=== PATIENT | male | born 1955 | race Caucasian/White ===

== ENCOUNTER 2020-12-13 10:57 | Observation (INO) ==
[2020-12-13] MEDS ORDERED: ONDANSETRON HCL/PF 2 MG/ML VIAL IV ONE ×2 (11:10→12:18)
[2020-12-13] MEDS ORDERED: NORMAL SALINE 1,000 ML IV PRN (11:11)
[2020-12-13] MEDS ORDERED: MORPHINE SULFATE 2 MG/ML DISP.SYRIN IV ONE ×2 (11:11→23:05)
--- NOTE | 2020-12-13 11:27 | ERNOTE ---
Abdominal HPI - Narrative Date of Service: 12/13/20 - General Chief Complaint: Abdominal Pain Time Seen by Provider: 12/13/20 11:07 Source: patient Exam Limitations: clinical condition - Immun/Allergies/Home Medications Immunizatons: IMMUNIZATION HX Immunizations Up to Date No History of Influenza Vaccine No Allergies/Adverse Reactions: Allergies No Known Allergies Allergy (Verified 07/10/20 13:35) - Pain Score Pain Score #1 Pain Score: 9 Abdominal Pain Onset Location: generalized abdomen Pain Radiation: no radiation - History of Present Illness Narrative: The patient is a 65 year old male who presents via POV for abdominal pain which has been present since this am. There are associated symptoms of nausea and vomiting. The patient reports generalized abdominal pain, 9/10. There are no alleviating factors. There are aggravating factors of oral intake. Previous treatments have included: none. The past medical history includes: noncontributory. The social history is positive for daily alcohol use and occasional marijuana use. The patient has had no known ill contacts. Patient reports intake of beer and vodka last evening and then this am awoke due to abdominal pain with onset of vomiting. 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 Patient states he chronically has blood streaks to stool due to hemorrhoids and today was unchanged. Review of Systems - Review of Systems Constitutional: Present: chills, diaphoresis. Absent: fever EYE: Present: no symptoms reported ENT: Present: no symptoms reported. Absent: ear pain, nasal drainage, sore throat Respiratory: Present: shortness of breath, cough Cardiology: Absent: chest pain Gastrointestinal/Abdominal: Present: nausea, vomiting, diarrhea, abdominal pain Genitourinary: Present: decreased urinary output. Absent: dysuria Skin: Present: no symptoms reported. Absent: rash Neurological: Present: no symptoms reported Medical History (Last Reviewed 12/13/20 @ 11:13 by JEANETTE Whaley) Personal history of other (healed) physical injury and trauma (Chronic) Chronic back pain (Chronic) Pneumothorax (Resolved) Onset Date: ~1985 History of MRSA infection (Acute) Onset Date: 02/19/15 Pathologic fracture (Inactive) Onset Date: Unknown Cellulitis (Resolved) Onset Date: 02/19/15 Pain from implanted hardware (Acute) Onset Date: Unknown Tendinopathy (Acute) Onset Date: Unknown Radial nerve entrapment (Acute) Onset Date: Unknown Surgical History: Surgical History (Last Reviewed 12/13/20 @ 11:13 by JEANETTE Whaley) annmarie placement (Acute) Onset Date: ~1984 left S/P hernia repair (Inactive) Onset Date: ~1975 right inguinal History of dental surgery (Acute) Onset Date: Unknown S/P hemorrhoidectomy (Inactive) Onset Date: ~1989 Family History: Family History (Last Reviewed 12/13/20 @ 11:13 by EJANETTE Whaley) Father Lung cancer Mother Stomach cancer Brother Natural with unknown cause Sister Renal disease Social History: (Last Reviewed 12/13/20 @ 11:13 by JEANETTE Whaley) Social History: assisted: No Marital status: lives independently: Yes household members: none number of children: 2 current occupational status: employed Highest level of school completed/degree received: high school graduate Service: Yes branch: [employer] Tobacco: Smoking Status: Never smoker second hand exposure: No Alcohol: alcohol intake: current Substance Use: substance use type: does not use Dietary Habits: caffeine: Yes Exercise: frequency: does not exercise Physical Exam - Physical Exam General Appearance: Present: wd/wn, alert, moderate distress Head Exam: Present: normal inspection, no evidence of injury Eye Exam: Normal inspection: bilateral Neck: Present: normal inspection Respiratory: Present: no respiratory distress, normal breath sounds, no accessory muscle use, wheezing Cardiovascular/Chest: Present: regular rate, rhythm, no murmur Gastrointestinal/Abdominal: Present: normal bowel sounds, nondistended, soft, tenderness - diffuse abdominal pain, guarding, no pulsatile mass, hepatomegaly Extremity Exam: Present: no edema Neurological Exam: Present: alert, oriented, normal mood/affect, no motor/sensory deficits Skin Exam: Present: normal color, warm/dry Progress - Date and Time Seen: Date and Time: 12/13/20 14:28 Results of testing and imaging reviewed with , will admit for observati on. Will administer IV antibiotics to ensure coverage for potential infectious cause as well as add Protonix. Patient remains having intractable nausea, vomiting and abdominal pain that is managed with medication administration IV. Patient informed of plan of care and agrees with plan, verbalized understanding. - Results and Orders Patient's Lab Results:: I have reviewed the patient's lab results. - Vital Signs Patient's Vital Signs:: I have reviewed the patient's vital signs. Vital Signs: Vital Signs 12/13/20 11:00 Temperature 36.2 C Pulse Rate 85 Respiratory Rate 22 H Blood Pressure 160/106 H O2 Sat by Pulse Oximetry 100 - CT/Ultrasound CT/Ultrasound Narrative: IMPRESSION: 1. Colitis. No pneumatosis or portal venous gas. No evidence of bowel obstruction. No free air. No abscess. 2. Small hiatal hernia. 3. Question distal esophagitis. 4. Findings concerning for prostatitis and seminal vesiculitis. Also, question cystitis. 5. Findings at the posterior right lower lung may represent scarring. Consider nonemergent outpatient CT chest to further evaluate for a pulmonary nodule. 6. Additional findings and comments are as above. Electronically signed by [place] D.O.. - Progress/Reassessment Chief Complaint: Abdominal Pain Departure Clinical Impression: Colitis Abdominal pain Qualifiers: Abdominal location: generalized Qualified Code(s): R10.84 - Generalized abdominal pain - Departure Disposition: Still a patient Condition: Fair Referrals: Manjula Javier DO [Primary Care Provider] -
[2020-12-13 11:29] LABS: Hematocrit 46.1 % (42.0-52.0); Hemoglobin 15.5 gm/dL (13.5-18.0); Mean Cell Volume 98.7 fl (78-100); Mean Corpuscular Hemoglobin 33.2 pg (27-31); Mean Corpuscular Hgb Conc 33.6 g/dl (32-36); Mean Platelet Volume 10.8 fl (8-11.3); Neutrophil # 8.2 K/mm3 (1.3-6.0); Neutrophil % 78.9 % (42-75.0); Platelet Count 222 K/mm3 (150-450); Red Blood Count 4.67 M/mm3 (4.7-6.0); Red Cell Distribution Width 13.5 % (11.5-14.0); White Blood Count 10.3 K/mm3 (4.0-10.5)
[2020-12-13 11:35] LABS: Albumin * 4.7 gm/dl (3.4-5.0); Anion Gap 19.2 mmol/L (6.8-13.8); Bilirubin, Total 0.6 mg/dL (0.0-1.1); Ca. Corrected For Albumin 8.9 mg/dL (8.4-10.2); Calcium * 9.8 mg/dL (7.9-10.9); Carbon Dioxide 24.4 mmol/L (24-32.6); Potassium 3.6 mmol/L (3.4-4.6); Total Protein 8.5 gm/dL (6.2-8.2)
[2020-12-13] MEDS ORDERED: DIATRIZOATE MEGLUMINE, SODIUM 30 ML BTL PO ONE (11:49)
[2020-12-13] MEDS ORDERED: NORMAL SALINE 1,000 ML IV ONE (12:20)
[2020-12-13] MEDS ORDERED: METOCLOPRAMIDE HCL 5 MG/ML VIAL IV ONE ×2 (14:08→23:05)
[2020-12-13] MEDS ORDERED: diphenhydrAMINE HCL 50 MG/ML VIAL IV ONE (14:08)
[2020-12-13] MEDS ORDERED: MORPHINE SULFATE 4 MG/ML SYRG IV ONE (14:08)
[2020-12-13 14:10] LABS: Urine Bilirubin Negative (NEGATIVE); Urine Blood Negative /ul (NEGATIVE); Urine Ketone Large mg/dL (NEGATIVE); Urine Nitrite Negative (NEGATIVE); Urine Protein Negative (NEGATIVE); Urine Urobilinogen Normal (NORMAL)
[2020-12-13 14:17] LABS: Urine Appearance Clear (CLEAR); Urine Bacteria None Seen; Urine Color Yellow; Urine RBC None Seen /hpf (0-5); Urine WBC None Seen /hpf (0-5)
[2020-12-13] MEDS ORDERED: PANTOPRAZOLE SODIUM 40 MG/100 ML PIGGYBACK IV ONE (14:21)
[2020-12-13] MEDS: metroNIDAZOLE/SODIUM CHLORIDE 500 MG/100 ML BAG IV SCH ×2 (14:30→21:59)
[2020-12-13] MEDS: CIPROFLOXACIN IN 5 % DEXTROSE 400 MG/200 ML BAG IV SCH (15:04)
--- NOTE | 2020-12-13 16:23 | HP ---
Chief Complaint - Chief Complaint Date of Service: 12/13/20 Time of Service: 15:00 Chief Complaint: abdominal pain History of Present Illness: Patient with no significant PMHx presents to the ED after a few hours of abdominal pain and vomiting. He drinks a few alcoholic drinks daily, and had about 4 last night. Woke up with some abdominal pain that worsened over the course of the morning, and vomiting persisted. Denies fever, cough, diarrhea, urinary complaints. Work up in the ED did not reveal significant electrolyte or blood count abnormality. CT abd/pel showed possible colitis, esophagitis, prostatitis, vesiculitis, cystitis. His pain did not improve after morphine administration, and he continued vomiting despite zofran. On my exam he is pleasant, in no acute distress. He is admitted for management of pain and intractable vomiting. Medical History (Last Reviewed 12/13/20 @ 11:13 by JEANETTE Whaley) Personal history of other (healed) physical injury and trauma (Chronic) Chronic back pain (Chronic) Pneumothorax (Resolved) Onset Date: ~1985 History of MRSA infection (Acute) Onset Date: 02/19/15 Pathologic fracture (Inactive) Onset Date: Unknown Cellulitis (Resolved) Onset Date: 02/19/15 Pain from implanted hardware (Acute) Onset Date: Unknown Tendinopathy (Acute) Onset Date: Unknown Radial nerve entrapment (Acute) Onset Date: Unknown Surgical History: Surgical History (Last Reviewed 12/13/20 @ 11:13 by JEANETTE Whaley) annmarie placement (Acute) Onset Date: ~1984 left S/P hernia repair (Inactive) Onset Date: ~1975 right inguinal History of dental surgery (Acute) Onset Date: Unknown S/P hemorrhoidectomy (Inactive) Onset Date: ~1989 Family History: Family History (Last Reviewed 12/13/20 @ 11:13 by JEANETTE Whaley) Father Lung cancer Mother Stomach cancer Brother Natural with unknown cause Sister Renal disease Social History: (Last Reviewed 12/13/20 @ 11:13 by JEANETTE Whaley) Social History: prison: No Marital status: lives independently: Yes household members: none number of children: 2 current occupational status: employed Highest level of school completed/degree received: high school graduate Service: Yes branch: [employer] Tobacco: Smoking Status: Never smoker second hand exposure: No Alcohol: alcohol intake: current Substance Use: substance use type: does not use Dietary Habits: caffeine: Yes Exercise: frequency: does not exercise Review Of Systems (GEN) - Review of Systems Generalized/Overall Review: Absent: Fever Respiratory: Absent: Shortness of Breath Cardiac: Absent: Chest Pain, Edema Abdominal: Present: Vomiting, Abdominal Pain, Diarrhea - this morning Genitourinary: Present: No Symptoms Reported Musculoskeletal: Present: No Symptoms Reported Neurological: Present: No Symptoms Reported Immunizations: IMMUNIZATION HX Immunizations Up to Date No History of Influenza Vaccine No Allergies/Adverse Reactions: Allergies Allergy/AdvReac Type Severity Reaction Status Date / Time No Known Allergies Allergy Verified 07/10/20 13:35 Exam - Exam Vital Signs: Vital Signs - Last Taken Temp 36.2 C 12/13/20 11:00 Pulse 96 12/13/20 15:07 Resp 16 12/13/20 15:07 BP 151/91 H 12/13/20 15:07 Pulse Ox 97 12/13/20 15:07 Constitutional: Present: Alert, Cooperative, No distress, Looks Older than stated age Respiratory: Present: lungs clear, normal breath sounds Cardiovascular/Chest: Present: regular rate, rhythm Abdomen: Present: soft, tender - lower quadrants Extremity: Absent: lower extremity edema Eye contact: Present: cooperative, good eye contact Diagnostic Studies: Abnormal Lab Results 12/13/20 12/13/20 12/13/20 Range/Units 11:17 11:17 13:08 RBC 4.67 L (4.7-6.0) M/mm3 MCH 33.2 H (27-31) pg Immature Gran # (Auto) 0.04 H (0.000-0.0310) K/mm3 Neutrophils % 78.9 H (42-75.0) % Lymphocytes % 17.1 L (20-51) % Neutrophils # 8.2 H (1.3-6.0) K/mm3 Anion Gap 19.2 H (6.8-13.8) mmol/L Random Glucose 124 H (70-110) mg/dL Total Protein 8.5 H (6.2-8.2) gm/dL Urine pH 8.0 H (5.0-7.0) pH Laboratory Results WBC 10.3 K/mm3 (4.0-10.5) 12/13/20 11:17 RBC 4.67 M/mm3 (4.7-6.0) L 12/13/20 11:17 Hgb 15.5 gm/dL (13.5-18.0) 12/13/20 11:17 Hct 46.1 % (42.0-52.0) 12/13/20 11:17 MCV 98.7 fl (78-100) 12/13/20 11:17 MCH 33.2 pg (27-31) H 12/13/20 11:17 MCHC 33.6 g/dl (32-36) 12/13/20 11:17 RDW 13.5 % (11.5-14.0) 12/13/20 11:17 Plt Count 222 K/mm3 (150-450) 12/13/20 11:17 MPV 10.8 fl (8-11.3) 12/13/20 11:17 Immature Gran % (Auto) 0.40 % (0.001-0.429) 12/13/20 11:17 Immature Gran # (Auto) 0.04 K/mm3 (0.000-0.0310) H 12/13/20 11:17 Neutrophils % 78.9 % (42-75.0) H 12/13/20 11:17 Lymphocytes % 17.1 % (20-51) L 12/13/20 11:17 Monocytes % 3.4 % (0.0-9) 12/13/20 11:17 Eosinophils % 0.0 % (0.0-3.0) 12/13/20 11:17 Basophils % 0.2 % (0.0-1.0) 12/13/20 11:17 Nucleated RBC % 0.0 k/mm3 (0-1) 12/13/20 11:17 Neutrophils # 8.2 K/mm3 (1.3-6.0) H 12/13/20 11:17 Lymphocytes # 1.77 k/mm3 (1.5-3.5) 12/13/20 11:17 Monocytes # 0.4 k/mm3 (0.0-1.0) 12/13/20 11:17 Eosinophils # 0.0 k/mm3 (0.0-0.7) 12/13/20 11:17 Absolute Basophils 0.0 k/mm3 (0.0-0.1) 12/13/20 11:17 Sodium 142 mmol/L (132-142) 12/13/20 11:17 Plasma Sodium 142 mmol/L (130-142) 12/13/20 11:17 Potassium 3.6 mmol/L (3.4-4.6) 12/13/20 11:17 Chloride 102 mmol/L (97-106) 12/13/20 11:17 Carbon Dioxide 24.4 mmol/L (24-32.6) 12/13/20 11:17 Anion Gap 19.2 mmol/L (6.8-13.8) H 12/13/20 11:17 BUN 9 mg/dL (6-23) 12/13/20 11:17 Creatinine 0.82 mg/dL (0.4-1.4) 12/13/20 11:17 Est GFR (Non-Af Amer) 101 mL/min (60-130) D 12/13/20 11:17 BUN/Creatinine Ratio 11.0 (9.0-21.6) 12/13/20 11:17 Random Glucose 124 mg/dL (70-110) H 12/13/20 11:17 Calcium 9.8 mg/dL (7.9-10.9) 12/13/20 11:17 Calcium Adj for Albumin 8.9 mg/dL (8.4-10.2) 12/13/20 11:17 Total Bilirubin 0.6 mg/dL (0.0-1.1) 12/13/20 11:17 AST 39 U/L (0-48) 12/13/20 11:17 ALT 41 U/L (19-67) 12/13/20 11:17 Alkaline Phosphatase 71 U/L (50-170) 12/13/20 11:17 Total Protein 8.5 gm/dL (6.2-8.2) H 12/13/20 11:17 Albumin 4.7 gm/dl (3.4-5.0) 12/13/20 11:17 Amylase 57 U/L (25-115) 12/13/20 11:17 Lipase 150 U/L (73-393) 12/13/20 11:17 Urine Color Yellow 12/13/20 13:08 Urine Appearance Clear (CLEAR) 12/13/20 13:08 Urine pH 8.0 pH (5.0-7.0) H 12/13/20 13:08 Ur Specific [place] 1.020 SP.GR. (1.005-1.030) 12/13/20 13:08 Urine Protein Negative mg/dL (NEGATIVE) 12/13/20 13:08 Urine Glucose (UA) Negative mg/dL (NEGATIVE) 12/13/20 13:08 Urine Ketones Large mg/dL (NEGATIVE) 12/13/20 13:08 Urine Blood Negative /ul (NEGATIVE) 12/13/20 13:08 Urine Nitrate Negative (NEGATIVE) 12/13/20 13:08 Urine Bilirubin Negative mg/dl (NEGATIVE) 12/13/20 13:08 Urine Urobilinogen Normal EU/dl (NORMAL) 12/13/20 13:08 Ur Leukocyte Esterase Negative /ul (NEGATIVE) 12/13/20 13:08 Urine RBC None seen /hpf (0-5) 12/13/20 13:08 Urine WBC None seen /hpf (0-5) 12/13/20 13:08 Ur Epithelial Cells 0-5 /hpf (0-5) 12/13/20 13:08 Urine Bacteria None seen (NONE) 12/13/20 13:08 Urine Culture Comments No culture indicated 12/13/20 13:08 SARS-CoV-2 (PCR) Not detected (NotDetected) 12/13/20 14:43 Assessment/Plan - Narrative Narrative: His CT scan showed several areas of questionable inflammation. He does not appear acutely uncomfortable for my exam. His physical exam supports possible colitis, so will start IV cipro and flagyl, and a clear liquid diet. He does not appear ill enough to have prostatitis as suggested by the CT, but this would be covered by cipro. I suspect alcohol intake may be responsible for some of his discomfort. He was started on IV protonix to help with esophagitis. Can use a dose of IV tylenol for pain control if needed. He was given reglan prior to leaving the ED, and will allow time for this to work. If vomiting persists, will start phenergan. If pain and vomiting improve and he is able to tolerate liquids, may DC home tomorrow. Recommended alcohol cessation. - Assessment/Plan (1) Abdominal pain Problem: Acute Qualifiers: Abdominal location: generalized Qualified Code(s): R10.84 - Generalized abdominal pain (2) Colitis Problem: Suspected (3) Abnormal CT of the abdomen Problem: Acute (4) Esophagitis Problem: Suspected
[2020-12-13] MEDS: NORMAL SALINE 1,000 ML IV PRN (18:54)
[2020-12-13] MEDS ORDERED: FAMOTIDINE 20 MG TABLET PO ONE (23:07)
[2020-12-14] MEDS: CIPROFLOXACIN IN 5 % DEXTROSE 400 MG/200 ML BAG IV SCH (01:56)
[2020-12-14] MEDS: NORMAL SALINE 1,000 ML IV PRN (04:59)
[2020-12-14] MEDS: metroNIDAZOLE/SODIUM CHLORIDE 500 MG/100 ML BAG IV SCH (07:21)
[2020-12-14] MEDS ORDERED: ONDANSETRON 4 MG TAB.RAPDIS PO PRN (07:54)
[2020-12-14] MEDS ORDERED: FAMOTIDINE 20 MG TABLET PO SCH (09:00)
--- NOTE | 2020-12-14 14:06 | DS ---
(1) Abdominal pain Problem: Acute Qualifiers: Abdominal location: generalized Qualified Code(s): R10.84 - Generalized abdominal pain (2) Colitis Problem: Suspected (3) Abnormal CT of the abdomen Problem: Acute (4) Esophagitis Problem: Suspected Date of Discharge:: 12/14/20 Hospital Course: Patient with no significant PMHx presents to the ED after a few hours of abdominal pain and vomiting. He drinks a few alcoholic drinks daily, and had about 4 last night. Woke up with some abdominal pain that worsened over the course of the morning, and vomiting persisted. Denies fever, cough, diarrhea, urinary complaints. Work up in the ED did not reveal significant electrolyte or blood count abnormality. CT abd/pel showed several areas of possible inflammation: possible colitis, esophagitis, prostatitis, vesiculitis, cystitis. He was started on IV cipro and flagyl. His pain did not improve after morphine administration, and he continued vomiting despite zofran. On my admission exam he is pleasant, in no acute distress. He is admitted for management of pain and intractable vomiting, and IV abx. He had the pain again overnight, improved after pepcid, morphine, and zofran. His pain improved the day of DC, and he felt comfortable going home. He agrees to alcohol cessation. He will be DC'd with po cipro and flagyl, to complete 5 days of abx. Will also send pepcid and zofran. Procedures Performed: none Results and Findings: Lab Pending Results 12/13/20 11:17: WBC 10.3, RBC 4.67 L, Hgb 15.5, Hct 46.1, MCV 98.7, MCH 33.2 H, MCHC 33.6, RDW 13.5, Plt Count 222, MPV 10.8, Immature Gran % (Auto) 0.40, Immature Gran # (Auto) 0.04 H, Neutrophils % 78.9 H, Lymphocytes % 17.1 L, Monocytes % 3.4, Eosinophils % 0.0, Basophils % 0.2, Nucleated RBC % 0.0, Neutrophils # 8.2 H, Lymphocytes # 1.77, Monocytes # 0.4, Eosinophils # 0.0, Absolute Basophils 0.0 12/13/20 11:17: Sodium 142, Plasma Sodium 142, Potassium 3.6, Chloride 102, Carbon Dioxide 24.4, Anion Gap 19.2 H, BUN 9, Creatinine 0.82, Est GFR (Non-Af Amer) 101 D, BUN/Creatinine Ratio 11.0, Random Glucose 124 H, Calcium 9.8, Calcium Adj for Albumin 8.9, Total Bilirubin 0.6, AST 39, ALT 41, Alkaline Phosphatase 71, Total Protein 8.5 H, Albumin 4.7, Amylase 57, Lipase 150 12/13/20 13:08: Urine Color Yellow, Urine Appearance Clear, Urine pH 8.0 H, Ur Specific [place] 1.020, Urine Protein Negative, Urine Glucose (UA) Negative, Urine Ketones Large, Urine Blood Negative, Urine Nitrate Negative, Urine Bilirubin Negative, Urine Urobilinogen Normal, Ur Leukocyte Esterase Negative, Urine RBC None seen, Urine WBC None seen, Ur Epithelial Cells 0-5, Urine Bacteria None seen, Urine Culture Comments No culture indicated 12/13/20 14:43: SARS-CoV-2 (PCR) Not detected Discharge Location: Home Disposition: Home self-care Condition: Fair Discharge Activity: Activity as tolerated Discharge Diet: Low fat/chol Referrals: Manjula Javier DO [Primary Care Provider] - Two Weeks Additional Patient Instructions (free text): AA meetings in [place] on Tuesdays 7 to [address] [phone]. Prescriptions (Any new or edited meds): Ciprofloxacin HCl [Cipro] 250 mg PO BID #7 tablet metroNIDAZOLE [Flagyl] 500 mg PO Q8H #11 tablet Famotidine [Pepcid] 20 mg PO BID #60 tablet Ondansetron [Zofran Odt] 4 mg PO Q6H PRN #30 tab.rapdis PRN Reason: Nausea And Vomiting Complete Home Medications List: Complete Home Medication List: Ciprofloxacin HCl [Cipro] 250 mg PO BID #7 tablet 12/14/20 Famotidine [Pepcid] 20 mg PO BID #60 tablet 12/14/20 Ondansetron [Zofran Odt] 4 mg PO Q6H PRN #30 tab.rapdis 12/14/20 metroNIDAZOLE [Flagyl] 500 mg PO Q8H #11 tablet 12/14/20
[2020-12-14] MEDS ORDERED: CIPROFLOXACIN HCL 250 MG TABLET PO SCH (15:00)
[2020-12-14] MEDS ORDERED: metroNIDAZOLE 500 MG TABLET PO SCH (16:00)
[2020-12-14 16:42] VITALS: BP 164/98
== END 2020-12-14 13:05 | disposition home or self-care (01) ==
LOC: ER 10:57 → MS 10:57
PROVIDERS: ADMIT Family Medicine; ATTEND Family Medicine